=== PATIENT | female | born 1990 | race Hispanic/Latino ===

== ENCOUNTER 2021-04-09 20:47 | Emergency (ER) | payer SELFPAY ==
[~2021-04-09] VITALS: Ht 162.6 cm; Wt 112.0 kg
[2021-04-09] MEDS ORDERED: ACETAMINOPHEN WITH CODEINE 1 TAB TAB PO ONE (23:00)
[2021-04-09] MEDS ORDERED: CEFTRIAXONE 1G VIAL IVP SCH (23:00)
[2021-04-09] MEDS ORDERED: LIDOCAINE HCL-MPF 1% 2ML VIAL ONE (23:28)
[2021-04-09] MEDS ORDERED: SULF1TAB42 PO (23:32)
[2021-04-09] MEDS ORDERED: IBUP-2070 PO (23:32)
[2021-04-09] MEDS ORDERED: CEPH500B PO (23:32)
[2021-04-09 23:46] VITALS: BP 135/78
== END 2021-04-09 23:49 | disposition home or self-care (01) ==
LOC: EDH 22:35
DX: L03.311 Cellulitis of abdominal wall (principal); J45.909 Unspecified asthma, uncomplicated; Z90.49 Acquired absence of other specified parts of digestive tract; Z98.890 Other specified postprocedural states
CPT/HCPCS: 96372; 99283; J0696; J3490